=== PATIENT | female | born 1935 | race Caucasian/White ===

== ENCOUNTER 2025-02-08 03:35 | Emergency (ER) | payer OTHER ==
[~2025-02-08] VITALS: Ht 154.9 cm; Wt 49.9 kg
[2025-02-08 07:27] VITALS: BP 153/69; TEMP 98; O2SAT 97
== END 2025-02-08 07:38 | disposition home or self-care (01) ==
LOC: ER 03:41
DX: S01.81XA Laceration without foreign body of other part of head, initial encounter (principal); I10 Essential (primary) hypertension; W18.09XA Striking against other object with subsequent fall, initial encounter; Y93.01 Activity, walking, marching and hiking; Y92.091 Bathroom in other non-institutional residence as the place of occurrence of the external cause; Y99.9 Unspecified external cause status
CPT/HCPCS: 70450-TC